=== PATIENT | female | born 1970 | race Caucasian/White ===

== ENCOUNTER 2019-10-21 16:57 | Emergency (ER) | payer OTHER ==
[~2019-10-21] VITALS: Ht 160 cm; Wt 117.5 kg
[2019-10-21] MEDS ORDERED: CLONIDINE HCL 0.1 MG TAB PO ONE (17:30)
[2019-10-21 17:38] LABS: BASOPHILS % 0.3 % (0.0-1.0); EOSINOPHILS # (AUTO) 0.1 (0.0-0.4); EOSINOPHILS % 1.3 % (0.0-6.0); HEMATOCRIT 39.7 % (34.2-44.1); HEMOGLOBIN 12.7 g/dL (12.0-16.0); LYMPHOCYTES # (AUTO) 2.1 (1.0-3.2); LYMPHOCYTES % 28.1 % (18.0-39.1); MEAN CORPUSCULAR HEMOGLOBIN 28.7 pg (28-32); MEAN CORPUSCULAR VOLUME 89.6 fL (81-99); MONOCYTES # (AUTO) 0.5 (0.2-0.8); MONOCYTES % 6.7 % (4.4-11.3); NEUTROPHILS # (AUTO) 4.7 (2.1-6.9); NEUTROPHILS % 63.5 % (38.7-80.0); PLATELET COUNT 298 x10e3/uL (140-360); RED BLOOD COUNT 4.43 x10e6/uL (3.6-5.1); RED CELL DISTRIBUTION WIDTH 13.6 % (11.7-14.4)
[2019-10-21 17:44] LABS: CLARITY,URINE CLEAR (CLEAR); COLOR,URINE YELLOW (YELLOW); LEUKOCYTE ESTERASE ,URINE SMALL (NEGATIVE); NITRITE,URINE NEGATIVE (NEGATIVE)
[2019-10-21 17:45] LABS: BACTERIA,URINE RARE /HPF; BILIRUBIN,URINE NEGATIVE (NEGATIVE); EPITHELIAL CELLS,URINE FEW /LPF; KETONES,URINE NEGATIVE (NEGATIVE); PROTEIN,URINE DIPSTICK NEGATIVE (NEGATIVE); RBC,URINE 0-5 /HPF (0-5); URINE UROBILINOGEN 0.2 mg/dL (0.2 - 1); WBC,URINE (MAN) 0-5 /HPF (0-5)
[2019-10-21 17:46] LABS: PREGNANCY TEST, URINE NEGATIVE (NEGATIVE)
--- NOTE | 2019-10-21 17:49 | Diagnostic Imaging Report ---
EXAMINATION: CHEST SINGLE (PORTABLE) INDICATION: Hypertension COMPARISON: None FINDINGS: TUBES and LINES: None. LUNGS: Normal lung volumes. Lungs are clear. No consolidations. There is bibasilar atelectasis. PLEURA: No pleural effusion or pneumothorax. HEART AND MEDIASTINUM: The cardiomediastinal silhouette is unremarkable. BONES AND SOFT TISSUES: No acute osseous lesion. Soft tissues are unremarkable. UPPER ABDOMEN: No free air under the diaphragm. IMPRESSION: No acute thoracic radiographic abnormality. Signed by: Kayla Yoon MD on 10/21/2019 5:46 PM
[2019-10-21 17:53] LABS: INR 0.91; PARTIAL THROMBOPLASTIN TIME 32.6 seconds (23.8-35.5); PROTHROMBIN TIME 12.7 seconds (11.9-14.5)
--- OUTSIDE RECORDS SUMMARY | 2019-10-21 18:01 | XMS REPORT | Continuity of Care Document ---
Author Author [facility] Organization [facility] Address [address] [place] [address] Phone Unavailable Care Team Providers Care Nuclear Physics Professor Name Role Phone Shay POLLOCK Attphys Unavailable Problems This patient has no known problems. Allergies, Adverse Reactions, Alerts This patient has no known allergies or adverse reactions. Medications This patient has no known medications. Procedures This patient has no known procedures. Results Test Description Test Time Test Comments Results Result Comments Source CHEST SINGLE (PORTABLE) 2019-10-21 17:46:00 [place] [address] Patient Name: JACIEL FERREIRA MR #: [id number] : 1970 Age/Sex: 49/F Req #: [id number] Adm Physician: Ordered by: RENETTA POLLOCK MD Report #: [id number] Location: ER Room/Bed: Procedure: [id number] DX/CHEST SINGLE (PORTABLE) Exam Date: Exam Time: REPORT STATUS: Signed EXAMINATION: CHEST SINGLE (PORTABLE) INDICATION: Hypertension COMPARISON: None FINDINGS: TUBES and LINES: None. LUNGS: Normal lung volumes. Lungs are clear. No consolidations. There is bibasilar atelectasis. PLEURA: No pleural effusion or pneumothorax. HEART AND MEDIASTINUM: The cardiomediastinal silhouette is unremarkable. BONES AND SOFT TISSUES: No acute osseous lesion. Soft tissues are unremarkable. UPPER ABDOMEN: No free air under the diaphragm. IMPRESSION: No acute thoracic radiographic abnormality. Signed by: Miladis Null MD on 10/21/2019 5:46 PM Dictated By: MILADIS NULL MD 45 Transcribed By: ELY on 10/21/191745 COPY TO: RENETTA POLLOCK MD
[2019-10-21 18:02] LABS: ALBUMIN 3.9 g/dL (3.5-5.0); ALBUMIN/GLOBULIN RATIO 1.1 (0.8-2.0); ANION GAP 16.6 mmol/L (8-16); CALCIUM 9.7 mg/dL (8.4-10.2); CREATININE, SERUM 0.98 mg/dL (0.57-1.11); POTASSIUM 3.6 mmol/L (3.5-5.1)
--- NOTE | 2019-10-21 18:08 | Emergency Department Note ---
History of Present Illnes History of Present Illness Chief Complaint: Hypertension History of Present Illness This is a 49 year old female PATIENT IN FROM HOME WITH COMPLAINTS OF HEADACHE AND HIGH BLOOD PRESSURE STARTING THIS MORNING; PATIENT STATES SHE HAS FELT VERY EMOTIONAL ALL DAY. PATIENT TEARFUL IN TRIAGE. RESP EVEN AND NONLABORED, AMBULATORY WITHOUT ASSISTANCE. RATES PAIN 5/10. Historian: Patient Arrival Mode: Car Restaurant Assistant Required: No Location: POSTERIOR HEAD Quality: ACHE Radiation: Reports non-radiation Severity: moderate Onset quality: gradual Duration (how long): hour(s) Timing of current episode: intermittent Progression: waxing and waning Chronicity: new Context: Denies recent illness Relieving factors: none Exacerbating factors: none Associated symptoms: Reports denies other symptoms (RENETTA POLLOCK MD) Past Medical/Family History Physician Review I have reviewed the patient's past medical and family history. Any updates have been documented here. (RENETTA POLLOCK MD) Past Medical History Recent Fever: No Clinical Suspicion of Infectio: No New/Unexplained Change in Ment: No Past Medical History: None Past Surgical History: None (RENETTA POLLOCK MD) Social History Smoking Cessation: Never Smoker Counseling Performed: No Alcohol Use: Occasional Any Illegal Drug Use: No TB Exposure/Symptoms: No Physically hurt or threatened: No (RENETTA POLLOCK MD) Family History Family history of heart diseas: Yes (RENETTA POLLOCK MD) Other Any Pre-Existing Lines (PICC,: No (RENETTA POLLOCK MD) Review of Systems Review of Systems Constitutional: Reports no symptoms EENTM: Reports no symptoms Cardiovascular: Reports no symptoms Respiratory: Reports no symptoms Gastrointestinal: Reports no symptoms Genitourinary: Reports no symptoms Musculoskeletal: Reports no symptoms Integumentary: Reports no symptoms Neurological: Reports headache Psychological: Reports no symptoms Endocrine: Reports no symptoms Hematological/Lymphatic: Reports no symptoms (RENETTA POLLOCK MD) Physical Exam Related Data Allergies: Coded Allergies: No Known Allergies (Unverified , 10/21/19) Triage Vital Signs Vital Signs Date Time Temp Pulse Resp B/P (MAP) Pulse Ox O2 Delivery O2 Flow Rate FiO2 10/21/19 17:02 98.6 99 20 171/98 99 Room Air Vital signs reviewed: Yes (RENETTA POLLOCK MD) Physical Exam CONSTITUTIONAL Constitutional: Present well-developed, Present well-nourished, Present obese HENT HENT: Present normocephalic, Present atraumatic, Present oropharynx clear/moist, Present nose normal HENT L/R: Present left ext ear normal, Present right ext ear normal EYES Eyes: Reports PERRL, Reports conjunctivae normal NECK Neck: Present ROM normal PULMONARY Pulmonary: Present effort normal, Present breath sounds normal CARDIOVASCULAR Cardiovascular: Present regular rhythm, Present heart sounds normal, Present capillary refill normal, Present normal rate GASTROINTESTINAL Abdominal: Present soft, Present nontender, Present bowel sounds normal GENITOURINARY Genitourinary: Present exam deferred SKIN Skin: Present warm, Present dry MUSCULOSKELETAL Musculoskeletal: Present ROM normal NEUROLOGICAL Neurological: Present alert, Present oriented x 3, Present no gross motor or sensory deficits; Absent cranial nerve deficit, Absent sensory deficit, Absent abnormal gait, Absent weakness PSYCHOLOGICAL Psychological: Present mood/affect normal, Present judgement normal (RENETTA POLLOCK MD) Results Laboratory Result Diagram: 10/21/19 3419 Laboratory Laboratory Tests Test 10/21/19 17:11 White Blood Count 7.44 x10e3/uL (4.8-10.8) Red Blood Count 4.43 x10e6/uL (3.6-5.1) Hemoglobin 12.7 g/dL (12.0-16.0) Hematocrit 39.7 % (34.2-44.1) Mean Corpuscular Volume 89.6 fL (81-99) Mean Corpuscular Hemoglobin 28.7 pg (28-32) Mean Corpuscular Hemoglobin Concent 32.0 g/dL (31-35) Red Cell Distribution Width 13.6 % (11.7-14.4) Platelet Count 298 x10e3/uL (140-360) Neutrophils (%) (Auto) 63.5 % (38.7-80.0) Lymphocytes (%) (Auto) 28.1 % (18.0-39.1) Monocytes (%) (Auto) 6.7 % (4.4-11.3) Eosinophils (%) (Auto) 1.3 % (0.0-6.0) Basophils (%) (Auto) 0.3 % (0.0-1.0) Neutrophils # (Auto) 4.7 (2.1-6.9) Lymphocytes # (Auto) 2.1 (1.0-3.2) Monocytes # (Auto) 0.5 (0.2-0.8) Eosinophils # (Auto) 0.1 (0.0-0.4) Basophils # (Auto) 0.0 (0.0-0.1) Absolute Immature Granulocyte (auto 0.01 x10e3/uL (0-0.1) Urine Color Yellow (YELLOW) Urine Clarity Clear (CLEAR) Urine pH 6.5 (5 - 7) Urine Specific Way[place] 1.025 (1.010-1.025) Urine Protein Negative (NEGATIVE) Urine Glucose (UA) Negative (NEGATIVE) Urine Ketones Negative (NEGATIVE) Urine Blood Negative (NEGATIVE) Urine Nitrite Negative (NEGATIVE) Urine Bilirubin Negative (NEGATIVE) Urine Urobilinogen 0.2 mg/dL (0.2 - 1) Urine Leukocyte Esterase Small (NEGATIVE) Urine RBC 0-5 /HPF (0-5) Urine WBC 0-5 /HPF (0-5) Urine Epithelial Cells Few /LPF (NONE) Urine Bacteria Rare /HPF (NONE) Urine Test Negative (NEGATIVE) Lab results reviewed: Yes (RENETTA POLLOCK MD) Laboratory Laboratory Tests Test 10/21/19 17:11 White Blood Count 7.44 x10e3/uL (4.8-10.8) Red Blood Count 4.43 x10e6/uL (3.6-5.1) Hemoglobin 12.7 g/dL (12.0-16.0) Hematocrit 39.7 % (34.2-44.1) Mean Corpuscular Volume 89.6 fL (81-99) Mean Corpuscular Hemoglobin 28.7 pg (28-32) Mean Corpuscular Hemoglobin Concent 32.0 g/dL (31-35) Red Cell Distribution Width 13.6 % (11.7-14.4) Platelet Count 298 x10e3/uL (140-360) Neutrophils (%) (Auto) 63.5 % (38.7-80.0) Lymphocytes (%) (Auto) 28.1 % (18.0-39.1) Monocytes (%) (Auto) 6.7 % (4.4-11.3) Eosinophils (%) (Auto) 1.3 % (0.0-6.0) Basophils (%) (Auto) 0.3 % (0.0-1.0) Neutrophils # (Auto) 4.7 (2.1-6.9) Lymphocytes # (Auto) 2.1 (1.0-3.2) Monocytes # (Auto) 0.5 (0.2-0.8) Eosinophils # (Auto) 0.1 (0.0-0.4) Basophils # (Auto) 0.0 (0.0-0.1) Absolute Immature Granulocyte (auto 0.01 x10e3/uL (0-0.1) Prothrombin Time 12.7 seconds (11.9-14.5) Prothromb Time International Ratio 0.91 Activated Partial Thromboplast Time 32.6 seconds (23.8-35.5) Urine Color Yellow (YELLOW) Urine Clarity Clear (CLEAR) Urine pH 6.5 (5 - 7) Urine Specific Wayan 1.025 (1.010-1.025) Urine Protein Negative (NEGATIVE) Urine Glucose (UA) Negative (NEGATIVE) Urine Ketones Negative (NEGATIVE) Urine Blood Negative (NEGATIVE) Urine Nitrite Negative (NEGATIVE) Urine Bilirubin Negative (NEGATIVE) Urine Urobilinogen 0.2 mg/dL (0.2 - 1) Urine Leukocyte Esterase Small (NEGATIVE) Urine RBC 0-5 /HPF (0-5) Urine WBC 0-5 /HPF (0-5) Urine Epithelial Cells Few /LPF (NONE) Urine Bacteria Rare /HPF (NONE) Urine Test Negative (NEGATIVE) Sodium Level 142 mmol/L (136-145) Potassium Level 3.6 mmol/L (3.5-5.1) Chloride Level 106 mmol/L (98-107) Carbon Dioxide Level 23 mmol/L (22-29) Anion Gap 16.6 mmol/L (8-16) Blood Urea Nitrogen 17 mg/dL (7-26) Creatinine 0.98 mg/dL (0.57-1.11) Estimat Glomerular Filtration Rate 60 ML/MIN (60-) BUN/Creatinine Ratio 17 (6-25) Glucose Level 111 mg/dL (74-118) Calcium Level 9.7 mg/dL (8.4-10.2) Total Bilirubin 0.6 mg/dL (0.2-1.2) Aspartate Amino Transf (AST/SGOT) 18 IU/L (5-34) Alanine Aminotransferase (ALT/SGPT) 27 IU/L (0-55) Alkaline Phosphatase 88 IU/L (40-150) Creatine Kinase 108 IU/L (29-168) Creatine Kinase MB 1.10 ng/mL (0-5.0) Troponin I 0.008 ng/mL (0-0.300) Total Protein 7.6 g/dL (6.5-8.1) Albumin 3.9 g/dL (3.5-5.0) Globulin 3.7 g/dL (2.3-3.5) Albumin/Globulin Ratio 1.1 (0.8-2.0) Lab results reviewed: Yes (VIOLETA PICHARDO MD) Imaging Imaging results reviewed: Yes Impressions Procedure: [id number] CT/CT BRAIN WO Exam Date: 10/21/19 Exam Time: 1740 REPORT STATUS: Signed Examination: CT BRAIN WO History:^N ^HTN HEADACHE ^20191021 ^1740 Comparison studies:None Technique: Axial images were obtained from the skull base to the vertex. Coronal and sagittal images reconstructed from the axial data. Dose modulation, iterative reconstruction, and/or weight based adjustment of the mA/kV was utilized to reduce the radiation dose to as low as reasonably achievable. Intravenous contrast: None Findings: Scalp: No abnormalities. Bones: No fractures, blastic or lytic lesions. Brain sulci: Appropriate for age. Ventricles: Normal in size and configuration. No hydrocephalus. Extra-axial space: No abnormalities. Parenchyma: No abnormal densities. No masses, hemorrhage, or acute or chronic cortical based vascular insults. Sellar/suprasellar region: No abnormalities. Craniocervical junction: Patent foramen magnum. No Chiari one malformation. Incidental findings: None. Impression: No intracranial abnormalities. Signed by: Dr. Carline Bennett M.D. on 10/21/2019 6:52 PM Dictated By: CARLINE GUILLEN MD 51 Transcribed By: ELY on 10/21/191851 COPY TO: RENETTA POLLOCK MD~ (VIOLETA PICHARDO MD) Procedures 12 Lead ECG Interpretation ECG Interpretation : ECG: ECG 1 Restaurant Assistant: Interpreted by ED physician Date: Oct 21, 2019 Time: 17:12 Rhythm: sinus rhythm Rate: normal (96) QRS axis: normal ST segments normal: Yes T waves normal: Yes Clinical Impression: non-specific ECG (POOR RWP) (RENETTA POLLOCK MD) Assessment & Plan Medical Decision Making MDM CBC, CHEM, CARDIACS ,ECG, CXR, CT BRAIN - CHECK FOR END-ORGAN DAMAGE DUE TO HTN, R/O RENAL INSUFF, CEREBRAL BLEED, STEMI, NSTEMI (RENETTA POLLOCK MD) Reassessment Reassessment REPORT TO DR PICHARDO TO F/U LABS, CT BRAIN, AND DISPO (RENETTA POLLOCK MD) Reassessment time: 18:53 Reassessment BP 148/88, HEADACHE RESOLVED (VIOLETA PICHARDO MD) Assessment & Plan Final Impression: (1) Hypertension (2) Headache (RENETTA POLLOCK MD) Depart Disposition: HOME, SELF-CARE Last Vital Signs Date Time Temp Pulse Resp B/P (MAP) Pulse Ox O2 Delivery O2 Flow Rate FiO2 10/21/19 17:47 159/112 10/21/19 17:02 98.6 99 20 99 Room Air (RENETTA POLLOCK MD) Medications in the ED Clonidine HCl 0.1 mg ONCE ONCE PO Last administered on 10/21/19at 17:47; Admin Dose 0.1 MG; Start 10/21/19 at 17:30; Stop 10/21/19 at 17:31; Status DC (RENETTA POLLOCK MD) RENETTA POLLOCK MD Oct 21, 2019 18:08 VIOLETA PICHARDO MD Oct 21, 2019 18:54
[2019-10-21 18:09] LABS: CREATINE KINASE MB 1.1 ng/mL (0-5.0)
--- NOTE | 2019-10-21 18:56 | Diagnostic Imaging Report ---
Examination: CT BRAIN WO History:^N ^HTN HEADACHE ^20191021 ^6074 Comparison studies:None Technique: Axial images were obtained from the skull base to the vertex. Coronal and sagittal images reconstructed from the axial data. Dose modulation, iterative reconstruction, and/or weight based adjustment of the mA/kV was utilized to reduce the radiation dose to as low as reasonably achievable. Intravenous contrast: None Findings: Scalp: No abnormalities. Bones: No fractures, blastic or lytic lesions. Brain sulci: Appropriate for age. Ventricles: Normal in size and configuration. No hydrocephalus. Extra-axial space: No abnormalities. Parenchyma: No abnormal densities. No masses, hemorrhage, or acute or chronic cortical based vascular insults. Sellar/suprasellar region: No abnormalities. Craniocervical junction: Patent foramen magnum. No Chiari one malformation. Incidental findings: None. Impression: No intracranial abnormalities. Signed by: Dr. Carline Bennett M.D. on 10/21/2019 6:52 PM
[2019-10-21 19:00] VITALS: BP 153/96
== END 2019-10-21 19:05 | disposition home or self-care (01) ==
LOC: ER 17:59
DX: I10 Essential (primary) hypertension (principal); R51 Headache
CPT/HCPCS: 36415; 70450; 71045; 80053; 81001; 81025; 82550; 82553; 84484; 85025; 85610; 85730; 93005; 99284